=== PATIENT | female | born 1975 | race Caucasian/White ===

== ENCOUNTER 2023-01-10 23:57 | Inpatient (IN) | payer BC ==
[~2023-01-10] VITALS: Ht 167.6 cm; Wt 75.0 kg
[2023-01-11] VITALS (7 sets, daily range): BP systolic 106–146; BP diastolic 81–105; PULSE 56–140; RESP 20–28; TEMP 96.2–96.6; O2SAT 99
[2023-01-11] MEDS ORDERED: ONDANSETRON HCL 4MG/2ML INJ IV STA (00:05)
[2023-01-11] MEDS ORDERED: MORPHINE SULFATE 4 MG/ML CPJ (NOT FOR IM USE) IV STA (00:05)
[2023-01-11] MEDS ORDERED: SODIUM CHLORIDE 0.9% 1,000 ML IV ONE (00:15)
[2023-01-11 00:36] LABS: BASOPHILS % 0.2 % (0.0-2.0); EOSINOPHILS % 1.3 % (0.0-5.0); HEMATOCRIT. 43.9 % (36.0-48.0); HEMOGLOBIN. 14.6 g/dL (12.0-16.0); LYMPHOCYTES % 30.8 % (20.0-50.0); MEAN CORPUSCULAR HEMOGLOBIN 36.9 pg (28.0-32.0); MEAN CORPUSCULAR HGB CONC 33.3 g/dL (31.0-37.0); MEAN CORPUSCULAR VOLUME 110.9 fL (81.0-99.0); MEAN PLATELET VOLUME 9.3 fl (7.4-10.4); MONOCYTES % 5.7 % (2.0-8.0); PLATELET 231 x1000/uL (130-400); RED BLOOD CELL COUNT 3.96 mill/uL (4.2-5.4); RED CELL DISTRIBUTION WIDTH 15.2 % (11.6-14.6); WHITE BLOOD COUNT 7.1 x1000/uL (4.5-11.0)
[2023-01-11 00:44] LABS: ADD RBC MORPHOLOGY YES; DIFFERENTIAL COMMENT 1
[2023-01-11 00:46] LABS: CHLORIDE 104 mEq/L (98-107); INDEX HEMOLYSI 1 (1-3); INDEX ICTERIC 1 (1-4); INDEX LIPEMIC 1 (1-3); SODIUM 136 mEq/L (136-145)
[2023-01-11 00:57] LABS: ALANINE AMINOTRANSFERASE 118 IU/L (13-61); ALBUMIN 3.6 g/dL (3.4-5.0); ASPARTATE AMINOTRANSFERASE 166 IU/L (15-37); BILIRUBIN TOTAL 0.6 mg/dL (0.1-1.0); CALCIUM 9.7 mg/dL (8.5-10.1); CARBON DIOXIDE 17 mEq/L (21-32); CREATININE 0.6 mg/dL (0.6-1.3); GLUCOSE 126 mg/dL (70-105); PROTEIN TOTAL 7.1 g/dL (6.0-8.3); UREA NITROGEN BLOOD 8 mg/dL (7-21)
[2023-01-11 01:03] LABS: LACTIC ACID 5.9 mmol/L (0.4-2.0)
[2023-01-11 01:36] LABS: INR 0.9; PROTHROMBIN TIME 9.8 sec (9.6-11.0)
[2023-01-11] MEDS ORDERED: IOHEXOL-350 100 ML BOTTLE ONE (01:38)
[2023-01-11] MEDS ORDERED: MORPHINE SULFATE 4 MG/ML CPJ (NOT FOR IM USE) IV ONE (02:00)
[2023-01-11] MEDS ORDERED: ONDANSETRON HCL 4MG/2ML INJ IV ONE (03:30)
[2023-01-11] MEDS ORDERED: HYDROMORPHONE HCL/PF 2MG/ML CPJ IV ONE (03:30)
[2023-01-11 04:31] LABS: PLATELET ESTIMATE NORMAL
[2023-01-11 04:32] LABS: ANISOCYTOSIS 1+
[2023-01-11] MEDS ORDERED: NALOXONE HCL 0.4MG/ML VIAL IV PRN (08:15)
[2023-01-11] MEDS ORDERED: HYDROCODONE/ACETAMINOPHEN 5/325MG TABLET PO PRN (08:15)
[2023-01-11] MEDS ORDERED: ONDANSETRON HCL 4MG/2ML INJ IV PRN (11:00)
[2023-01-11] MEDS ORDERED: HYDROMORPHONE HCL/PF 2MG/ML CPJ IV NR (11:00)
[2023-01-11] MEDS ORDERED: HYDROMORPHONE HCL/PF 2MG/ML CPJ IV PRN ×2 (12:30→14:45)
[2023-01-11] MEDS ORDERED: LACTULOSE 20G/30ML UDC PO SCH (14:00)
[2023-01-11] MEDS ORDERED: MINERAL OIL ENEMA 133ML PR SCH (14:00)
[2023-01-11] MEDS ORDERED: IPRATROPIUM/ALBUTEROL 0.5-3(2.5)MG/3ML NEB HHN SCH (15:00)
[2023-01-11] MEDS ORDERED: LORAZEPAM 2MG/ML CPJ IV PRN ×2 (15:30)
[2023-01-11] MEDS ORDERED: SUMA5SPR5 PO (16:25)
[2023-01-11] MEDS ORDERED: SEMA2PEN SUBCUT (16:25)
[2023-01-11] MEDS ORDERED: ASPI-1160 PO (16:25)
[2023-01-11] MEDS ORDERED: APIX2.5T PO (16:25)
[2023-01-11] MEDS ORDERED: RIZA5TAB16 PO (16:25)
[2023-01-11] MEDS ORDERED: ESCI20TA37 PO (16:25)
[2023-01-11] MEDS ORDERED: PROC5TAB55 PO (16:25)
[2023-01-11] MEDS ORDERED: BUPR-114 PO (16:25)
[2023-01-11] MEDS ORDERED: NORT10CA PO (16:25)
[2023-01-11] MEDS ORDERED: ALPR-339 PO (16:25)
[2023-01-11] MEDS ORDERED: ONDA4TAB11 PO (16:25)
[2023-01-11] MEDS ORDERED: DEXT 5%/0.45% NACL 500ML 500 ML IV ONE (16:30)
[2023-01-11] MEDS ORDERED: NOREPINEPHRINE 32 MG in DEXT 5% WATER 218 ML IV PRN (16:30)
[2023-01-11] MEDS ORDERED: APIXABAN 2.5 MG TABLET PO SCH (17:00)
[2023-01-11] MEDS ORDERED: PHENYLEPHRINE 100 MG in DEXT 5% WATER 240 ML IV PRN (17:15)
[2023-01-11 17:33] LABS: BG CARBOXYHEMOGLOBIN 1.2 % (0.5-1.5); BG DEOXYHEMOGLOBIN 87.1 % (0.0-5.0); BG OXYHEMOGLOBIN 10.7 % (94.0-97.0); BG PCO2 92.8 mmHg (35.0-45.0); BG PH < 6.680 (7.350-7.450); BG PO2 < 30.3 mmHg (75.0-100.0); BG SAMPLE SITE LEFT FEMORAL; BG TOTAL HEMOGLOBIN 13.7 g/dL (12.0-18.0); BG VENT MODE VENT - AC
[2023-01-11] MEDS ORDERED: SODIUM BICARBONATE 8.4% 1 MEQ/ML 50ML SYR IV NR (17:45)
[2023-01-11] MEDS ORDERED: VASOPRESSIN 20 UNIT in SODIUM CHLORIDE 0.9% 99 ML IV PRN (17:45)
[2023-01-11] MEDS ORDERED: SODIUM BICARBONATE 100 MEQ in DEXTROSE 5% WATER 1,000 ML IV SCH (18:00)
== END 2023-01-11 21:24 | DRG 388 ==
LOC: ER 01-11 00:37 → EDBEDREQ 01-11 04:02 → 8WST 01-11 06:16 → MICUSO 01-11 15:55
PROVIDERS: ADMIT Internal Medicine; ATTEND Internal Medicine
PROC: 5A12012 Performance of Cardiac Output, Single, Manual (ICD-10-PCS; principal; 2023-01-11)
PROC: 02HV33Z Insertion of Infusion Device into Superior Vena Cava, Percutaneous Approach (ICD-10-PCS; 2023-01-11)
PROC: 0BH17EZ Insertion of Endotracheal Airway into Trachea, Via Natural or Artificial Opening (ICD-10-PCS; 2023-01-11)
DX: K56.609 Unspecified intestinal obstruction, unspecified as to partial versus complete obstruction (principal); I26.99 Other pulmonary embolism without acute cor pulmonale; E87.20 Acidosis, unspecified; R00.0 Tachycardia, unspecified; D53.9 Nutritional anemia, unspecified; E27.8 Other specified disorders of adrenal gland; F32.A Depression, unspecified; Z66 Do not resuscitate; F41.9 Anxiety disorder, unspecified; I10 Essential (primary) hypertension; I95.9 Hypotension, unspecified; E87.5 Hyperkalemia; J45.909 Unspecified asthma, uncomplicated; R06.82 Tachypnea, not elsewhere classified; K76.0 Fatty (change of) liver, not elsewhere classified; K56.7 Ileus, unspecified; Z79.01 Long term (current) use of anticoagulants; Z79.82 Long term (current) use of aspirin; Z86.711 Personal history of pulmonary embolism; Z86.718 Personal history of other venous thrombosis and embolism; Z88.1 Allergy status to other antibiotic agents; Z91.81 History of falling
CPT/HCPCS: 36415; 36600; 71045; 74018; 74174; 80053; 82375; 82805; 82962; 83605; 85025; 92950; 93005; 94002; 94640; 99291; C1893; J1170; J2060; J2270; J2310; J2370; J2405; J3490; J7030; J7060; J7070; Q9967; A4315